=== PATIENT | male | born 1985 | race Hispanic/Latino ===

== ENCOUNTER 2018-07-03 08:39 | Emergency (ER) | payer SELFPAY ==
[2018-07-03] MEDS ORDERED: Fentanyl 100 MCG/2 ML VIAL ONE (08:58)
[2018-07-03] MEDS ORDERED: Ketorolac Tromethamine 30 MG/ML VIAL ONE (08:58)
[2018-07-03] MEDS ORDERED: Ketamine 50 MG/ML VIAL ONE (09:11)
--- NOTE | 2018-07-03 17:48 | RAD ---
LEFT ELBOW FOUR VIEWS: 07/03/18 There is an elbow dislocation present. The distal humerus sits anterior to the olecranon fossa. There are chip fractures of the coronoid process of the ulna as well as the tip of the olecranon posterior ly. There is another larger fragment within the joint at the moment that may be from the distal humer us. The current views do not allow this to be fully assessed. IMPRESSION: Fracture dislocation of the elbow. POS: HOME
--- NOTE | 2018-07-03 17:49 | RAD ---
LEFT ELBOW TWO VIEWS: 07/03/18 Followup post reduction views show reduction of the dislocation. One now sees a bony fragment just me dial to the joint that has been obviously chipped off. I cannot tell if this came from the ulna or no t, though that is my suspicion. IMPRESSION: Successful reduction of dislocation. POS: HOME
== END 2018-07-03 10:39 | disposition home or self-care (01) ==
LOC: EDBD 08:39 → BURERS 08:39
DX: S53.125A Posterior dislocation of left ulnohumeral joint, initial encounter (principal); W17.89XA Other fall from one level to another, initial encounter
CPT/HCPCS: 24600; 96361; 96374; 96375; J1885; J3010